=== PATIENT | female | born 2000 | race African-American/Black ===

== ENCOUNTER 2025-06-24 02:38 | Emergency (ER) | payer OTHER, MEDICAID ==
[~2025-06-24] VITALS: Ht 157.5 cm; Wt 111.0 kg
[2025-06-24 02:53] VITALS: TEMP 36.7; O2SAT 98
[2025-06-24] MEDS: LIDOCAINE 5% PATCH TOP SCH (03:56)
[2025-06-24] MEDS: ACETAMINOPHEN 500MG TABLET PO ONE (03:56)
[2025-06-24] MEDS: METOCLOPRAMIDE HCL 10MG TABLET PO ONE (03:56)
[2025-06-24] MEDS ORDERED: NAPR-1176 MT (04:42)
[2025-06-24] MEDS ORDERED: LIDO-53 TP (04:42)
[2025-06-24 05:13] VITALS: BP 113/57; PULSE 98; RESP 18; O2SAT 98
== END 2025-06-24 05:18 | disposition home or self-care (01) ==
LOC: ER 02:38
DX: S00.93XA Contusion of unspecified part of head, initial encounter (principal); M79.604 Pain in right leg; Z79.1 Long term (current) use of non-steroidal anti-inflammatories (NSAID); Z79.899 Other long term (current) drug therapy; V43.52XA Car driver injured in collision with other type car in traffic accident, initial encounter; Y93.89 Activity, other specified; Y92.410 Unspecified street and highway as the place of occurrence of the external cause; Y99.8 Other external cause status
CPT/HCPCS: 99284; 70450; 81025; 73552; J8597